=== PATIENT | female | born 1995 | race African-American/Black ===

== ENCOUNTER 2019-01-01 03:29 | Emergency (ER) | payer MEDICAID ==
[~2019-01-01] VITALS: Ht 175.3 cm; Wt 99.0 kg
[2019-01-01] MEDS ORDERED: IBUPROFEN 600MG TABLET PO ONE (04:30)
[2019-01-01 04:35] LABS: CLARITY URINE CLOUDY (CLEAR); COLOR URINE YELLOW (YELLOW); KETONES URINE TRACE (NEGATIVE); LEUKOCYTE ESTERASE URINE NEGATIVE (NEGATIVE); NITRITE URINE NEGATIVE (NEGATIVE); OCCULT BLOOD URINE NEGATIVE (NEGATIVE); PROTEIN URINE NEGATIVE (NEGATIVE); SPECIFIC GRAVITY URINE 1.029 (1.005-1.030); UROBILINOGEN URINE 0.2 E.U./dL (0.2-1.0)
[2019-01-01 06:34] VITALS: BP 113/65
== END 2019-01-01 06:35 | disposition home or self-care (01) ==
LOC: ER 03:29
DX: N76.0 Acute vaginitis (principal); Z91.040 Latex allergy status
CPT/HCPCS: 81003; 81025; 87210; 87491; 87591; 99283

== ENCOUNTER 2019-04-13 14:44 | Emergency (ER) | payer MEDICAID ==
[~2019-04-13] VITALS: Ht 175.3 cm; Wt 104.0 kg
[2019-04-13 15:10] VITALS: BP 125/67
== END 2019-04-13 17:01 | disposition left against medical advice (07) ==
LOC: ER 14:44
DX: R51 Headache (principal); R07.9 Chest pain, unspecified; Z53.21 Procedure and treatment not carried out due to patient leaving prior to being seen by health care provider
CPT/HCPCS: 93005

== ENCOUNTER 2019-05-30 16:09 | Emergency (ER) | payer MEDICAID ==
[~2019-05-30] VITALS: Ht 175.3 cm; Wt 103.0 kg
[2019-05-30] MEDS ORDERED: ACETAMINOPHEN 325MG TABLET PO STA (19:36)
[2019-05-30] MEDS ORDERED: IBUPROFEN 600MG TABLET PO STA (19:36)
[2019-05-30] MEDS ORDERED: VISCOUS LIDOCAINE 2% 15 ML UDC PO STA (19:36)
[2019-05-30 22:39] VITALS: BP 112/68
== END 2019-05-30 22:39 | disposition home or self-care (01) ==
LOC: ER 16:09
DX: B34.9 Viral infection, unspecified (principal); M79.18 Myalgia, other site; Z98.890 Other specified postprocedural states; Z91.040 Latex allergy status
CPT/HCPCS: 71045; 81025; 99284